=== PATIENT | male | born 1945 | race Two or more races ===

== ENCOUNTER 2022-06-30 23:52 | Inpatient (IN) | payer OTHER ==
[~2022-06-30] VITALS: Ht 177.8 cm; Wt 95.3 kg
[2022-07-01] MEDS ORDERED: GLIPIZIDE5 MG (00:14)
[2022-07-01] MEDS ORDERED: IRBESARTAN300 MG (00:14)
[2022-07-01] MEDS ORDERED: METFORMIN HCL750 MG (00:14)
[2022-07-01] MEDS ORDERED: BAYER THERAPY325 MG (00:14)
--- NOTE | 2022-07-01 00:14 | NUR ---
PTE ES DOCUMENTADO POR JOSEY ALCANTARA
[2022-07-01] MEDS ORDERED: METOPROLOL SUC200 MG (00:15)
[2022-07-01] MEDS ORDERED: SIMVASTATIN40 MG (00:15)
--- NOTE | 2022-07-01 00:17 | NUR ---
PTE ALERTA Y ORIENTADO POR SHIN ESFERAS CON BUEN PATRON RESPIRATORIO. VIENE EN RAINA POR AMBULANCIA POR SYNCOPE. REFIERE QUE NO PERDIO CONOCIMINETO, NO RELAJO ESFINTER, Y NIEGA TENER DOLOR DE PECHO. EMT REFIERE QUE AL MOMENTO DE INTERVENCION LE ADMINISTRARON VASOTEC. SE ALEKSANDR B/P MANUAL, RESULTADO DE 180/82MMHG. SE REALIZA EKG Y SE PRESENTA A MEDICO DE TURNO, SE UBICA EN AREA DE OBSERVACION.
--- NOTE | 2022-07-01 01:02 | NUR ---
SE LE ORIENTA A PTE SOBRE TRATAMIENTO E INSTRUCCIONES A SEGUIR, EL REFIERE ENTENDER. SE LE COLECTA MUESTRAS NNEKA ORDEN MEDICA. PENDIENTE CT HEAD, BAKARI X, ABG'S Y TR.
--- NOTE | 2022-07-01 07:22 | NUR ---
SE RECIBE PACIENTE MASCULINO ALERTA Y ORIENTADO X3, EN RAINA #13 CON BARRANDAS ELEVEDAS. AREA DE VENUPUNCION CON S/L PATENTE LAVERN DE EDEMA Y ENROJECIMIENTO. PENDIENTE RE-EVALUCION. SE LE VIBHA EN TODO MOMENTO PRIVACIDAD Y SEGURIDAD.
== END 2022-07-06 14:04 | disposition home or self-care (01) | DRG 66 ==
LOC: ER 23:52 → MEDJ 07-01 17:47
PROVIDERS: ADMIT Internal Medicine; ATTEND Internal Medicine
PROC: BW28ZZZ Computerized Tomography (CT Scan) of Head (ICD-10-PCS; principal; 2022-07-01)
PROC: B030ZZZ Magnetic Resonance Imaging (MRI) of Brain (ICD-10-PCS; 2022-07-01)
DX: I63.81 Other cerebral infarction due to occlusion or stenosis of small artery (principal); R41.82 Altered mental status, unspecified; R42 Dizziness and giddiness; E11.9 Type 2 diabetes mellitus without complications; Z20.822 Contact with and (suspected) exposure to COVID-19; E78.5 Hyperlipidemia, unspecified; I10 Essential (primary) hypertension
CPT/HCPCS: 70551